=== PATIENT | female | born 1990 | race African-American/Black ===

== ENCOUNTER 2018-01-10 20:14 | Emergency (ER) | payer OTHER, SELFPAY | END 2018-01-10 20:57 | disposition home or self-care (01) | LOC: ERS 20:14 | DX: S70.01XA Contusion of right hip, initial encounter (principal); F17.210 Nicotine dependence, cigarettes, uncomplicated; V80.010A Animal-rider injured by fall from or being thrown from horse in noncollision accident, initial encounter | CPT/HCPCS: 99283 ==

== ENCOUNTER 2018-02-10 19:11 | Emergency (ER) | payer SELFPAY | END 2018-02-10 20:11 | disposition left against medical advice (07) | LOC: SCSER 19:11 | DX: Z53.21 Procedure and treatment not carried out due to patient leaving prior to being seen by health care provider (principal) ==

== ENCOUNTER → 2018-06-30 | Day surgery (SDC) | payer OTHER, SELFPAY | LOC: ER/OP 09:41 | PROVIDERS: ATTEND Emergency Medicine | DX: Z29.13 Encounter for prophylactic Rho(D) immune globulin (principal); Z79.899 Other long term (current) drug therapy; Z91.018 Allergy to other foods; Z91.040 Latex allergy status; Z88.5 Allergy status to narcotic agent | CPT/HCPCS: 90384; 96372 ==

== ENCOUNTER 2018-07-10 21:56 | Day surgery (SDC) | payer OTHER ==
[2018-07-10 22:33] VITALS: BP 110/59; TEMP 98.5; BMI 26.6
[2018-07-10 23:19] LABS: Bilirubin Negative (Negative); Blood, Urine Negative (Negative); Clarity CLEAR (Clear); Glucose, Urine (Dipstick) Negative (Negative); Leukocyte Negative (Negative); Nitrite Negative (Negative); Protein, Urine (Dipstick) Negative (Neg-Trace); Specific Gravity, Urine 1.027 (1.002-1.036)
[2018-07-10 23:21] LABS: Pathc Cast-AUWi Flag 0.43 (0-2.49)
[2018-07-10 23:24] LABS: FFN Internal QC Analyzer PASS (PASS); FFN Internal QC Cassette PASS (PASS); Fetal Fibronectin Negative (Negative)
[2018-07-10 23:31] LABS: Bacteria/HPF None Seen HPF (None Seen); Hyaline Casts/LPF NONE SEEN LPF (0-3 Hyaline); RBC/HPF 0-3 HPF (0-3); Squamous Epithelial 0-3 HPF (0-3); WBC/HPF 0-3 HPF (0-3)
[2018-07-10] MEDS: Lactated Ringer's 1,000 ML IV SCH (23:43)
[2018-07-11] MEDS: Lactated Ringer's 1,000 ML IV SCH (00:48)
[2018-07-11] MEDS ORDERED: diphenhydrAMINE 25 MG CAP PO SCH (01:30)
== END 2018-07-11 01:45 | disposition home or self-care (01) ==
LOC: L&D/OP 21:56
PROVIDERS: ATTEND Obstetrics & Gynecology
DX: O47.9 False labor, unspecified (principal); O23.599 Infection of other part of genital tract in pregnancy, unspecified trimester; B96.89 Other specified bacterial agents as the cause of diseases classified elsewhere
CPT/HCPCS: 81001; 82731; 87480; 87510; 87660; 96360; 96361; 99285; Q0163

== ENCOUNTER 2018-08-03 18:23 | Day surgery (SDC) | payer OTHER ==
[2018-08-03 19:11] VITALS: BMI 27.9
[2018-08-03 20:12] LABS: Bilirubin Negative (Negative); Blood, Urine Negative (Negative); Clarity CLEAR (Clear); Glucose, Urine (Dipstick) Negative (Negative); Leukocyte Negative (Negative); Nitrite Negative (Negative); Protein, Urine (Dipstick) Negative (Neg-Trace); Specific Gravity, Urine 1.029 (1.002-1.036); pH, Urine 6.5 (5.0-9.0)
[2018-08-03 20:15] LABS: Bacteria/HPF None Seen HPF (None Seen); Squamous Epithelial 0-3 HPF (0-3); WBC/HPF None Seen HPF (0-3)
[2018-08-03 20:18] LABS: Hyaline Casts/LPF 0-3 HYALINE CAST LPF (0-3 Hyaline); Manual Microscopic Reviewed? No Path Casts Seen; Pathc Cast-AUWi Flag 3.12 (0-2.49)
[2018-08-03 20:20] LABS: Urine Culture Reflex No No
--- NOTE | 2018-08-03 23:14 | PRG ---
DATE OF SERVICE: TIME OF SERVICE: 2100 hours. PRESENTING COMPLAINT: Contractions and pelvic pressure. HISTORY OF PRESENT ILLNESS: Ms. Linder is a 27-year-old 4, para 2, AB 1, at 37 weeks' gestation who sees Dr. Tony Sharpe. Her VIKRAM is 08/24/2018. She has a previous , previous who desires a TOLAC. She reports contractions q.5 minutes. She denies bleeding. She denies rupture of membranes. SALES PROMOTION DIRECTOR HISTORY: As noted. Previous C-sections. Rh negative, O negative. No group B strep available. MEDICAL HISTORY: None. SURGICAL HISTORY: x1. ALLERGIES: DENIES. MEDICATIONS: vitamins. SOCIAL HISTORY: Denies tobacco, alcohol, or drug use. FAMILY HISTORY: Noncontributory. REVIEW OF SYSTEMS: Noncontributory. PHYSICAL EXAMINATION: GENERAL: A black female, resting comfortably. VITAL SIGNS: Temperature 98.7, respirations 20, pulse 93, blood pressure 116/58. HEENT: Within normal limits. LUNGS: Clear to auscultation bilaterally. HEART: Regular rate and rhythm. ABDOMEN: Soft, nontender. No rebound or guarding. GENITALIA: Vulva without lesions. Vagina without discharge. CERVIX: On presentation, was 150, -3, cephalic, by RN. monitoring is carried out for approximately 30 to 45 minutes with a reactive heart rate tracing category 1, uterine irritability without firm contractions q.3-5 minutes. P.o. hydration was encouraged. The patient's contractions decreased. Recheck of her cervix by the same examiner revealed her cervix to be unchanged. ASSESSMENT: 37 weeks with Everardo Landers contractions. No evidence of active labor. Previous for TOLAC. PLAN: Discharge home. Keep scheduled followup with Dr. Sharpe. ER precautions. Job ID: [id number]
== END 2018-08-03 21:23 | disposition home or self-care (01) ==
LOC: L&D/OP 18:23
PROVIDERS: ATTEND Obstetrics & Gynecology
DX: O47.1 False labor at or after 37 completed weeks of gestation (principal); Z3A.37 37 weeks gestation of pregnancy; Z91.018 Allergy to other foods; Z91.040 Latex allergy status; Z98.890 Other specified postprocedural states
CPT/HCPCS: 51701; 81001; 99283

== ENCOUNTER 2018-08-16 02:44 | Inpatient (IN) | payer OTHER ==
[2018-08-16 03:14] VITALS: BMI 27.8
[2018-08-16] MEDS: Lactated Ringer's 1,000 ML IV SCH ×4 (03:30→10:17)
[2018-08-16] MEDS ORDERED: Lidocaine 1% (PF) 30 ML VIAL SC PRN (03:44)
[2018-08-16] MEDS ORDERED: NS / Oxytocin 40 units/1000ml 1,000 ML IV PRN (03:44)
[2018-08-16] MEDS ORDERED: Ibuprofen 800 MG TAB PO PRN (03:44)
[2018-08-16] MEDS ORDERED: Promethazine HCl 25 MG/ML VIAL IM PRN ×4 (03:44→18:55)
[2018-08-16] MEDS ORDERED: Ondansetron PF 4 MG/2 ML Vial IVP PRN ×4 (03:44→18:55)
--- NOTE | 2018-08-16 03:48 | PDOC.FPROB ---
FMR OB H&P: HPI - History of Present Illness Chief Complaint: contractions Indentification: 27 y/o @ 38.6 WGA History of Present Illness: Patient reports ctx that started at 8 pm and are every 4 minutes apart. She says they are very severe and she was unable to do anything during them. She denies any LOF, vaginal bleeding, vaginal d/c. Endorses good movement. Patient reports she was checked in Dr. Silva office on Friday and she was 2 cm. Primary Care Physician: Dr. 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 Reports trichomonas in a prior , no STI's during this - Surgical History Sx History: x1 Tonsillectomy - Social History Social History: Smoked 1ppd of cigarettes for the first half of her Smoked marijuana, but quit when she found out she was - Family History Family History: VSD in 2 brothers FMR OB H&P: Medications - Current Home Medications: Medication Instructions Recorded Confirmed Type Vit37/Iron/Folic Acid 1 tablet PO DAILY 12/26/16 08/16/18 History [Prenata Chewable Tablet] Allergies/Adverse Reactions: Allergies Allergy/AdvReac Type Severity Reaction Status Date / Time orange Allergy Severe Hives Verified 08/16/18 03:07 latex Allergy Intermediate Rash Verified 08/16/18 03:07 FMR OB H&P: ROS - Review of Systems General: denies: fever/chills, fatigue Eyes: denies: eye pain, double vision, scotomas ENT: denies: nasal congestion, rhinorrhea, sore throat Cardiovascular: denies: chest pain, edema Respiratory: reports: shortness of breath (occasionally when she lies flat). denies: cough Gastrointestinal: denies: nausea, vomiting Genitourinary (Female): reports: contractions. denies: dysuria, hematuria, vaginal bleeding Musculoskeletal: denies: pain, tenderness Neurologic: denies: numbness, weakness Integumentary: denies: itching, rash Endocrine: denies: cold intolerance, heat intolerance Hematologic/Lymphatic: denies: prolonged or excessive bleeding, enlarged lymph nodes Psychological: denies: depression, anxiety FMR OB H&P: Vital Signs - Maternal Vital signs: Vital Signs - First Documented Temp Pulse Resp BP 97.9 F 82 22 H 112/60 08/16/18 03:05 08/16/18 03:05 08/16/18 03:05 08/16/18 03:05 - Heart Tones Baseline: 135 Variability: minimal Acceleration: absent Deceleration: absent Category: category 2 [place] contractions every: 3-5 min FMR OB H&P: Physical Exam - Physical Exam General: NAD, awake, alert and oriented HEENT: normocephalic and atraumatic, EOMI, MMM, conjunctiva clear, grossly normal vision, grossly normal hearing Heart: RRR, normal S1/S2, no murmurs/rubs/gallops, pulses present, no edema General: CTAB, no respiratory distress, good air movement, no rales/rhonchi, no wheezing Abdomen: soft, gravid, non-tender, bowel sound present Neurological: cranial nerves II through XII intact, no focal deficit Skin: good tugor, capillary refill <2 seconds Lymphatic: no unusual bruising or bleeding, no purpura Psychiatric: intact recent and remote memory, good judgement and insight - Pelvic Exam SVE: 3.5/80/-3 Membranes: intact Presentation: vertex FMR OB H&P: A/P - Problem List (1) Term Current Visit: Yes Status: Acute Code(s): Z34.80 - ENCOUNTER FOR SUPRN OF NORMAL , UNSP TRIMESTER Assessment and Plan: Patient has made cervical change since Friday and is valerie regularly. She is a term who desires TOLAC. -Admit to L&D -Cervical check in 2 hours -Epidural desired -Continuous monitoring -Will notify Dr. Sharpe (2) Patient desires vaginal after section () Current Visit: Yes Status: Acute Code(s): O34.219 - MATERNAL CARE FOR UNSP TYPE SCAR FROM PREVIOUS DEL Assessment and Plan: Expectant management. Patient with one successful . -Monitor closely Disposition: Admit to L&D for expectant management Discussion: Date/Time: 08/16/18 1909 This H&P was discussed with Dr. Gerard who agrees with the above documentation and plan. Signature: Robyn Damon MD, PGY-2
[2018-08-16] MEDS ORDERED: Fentanyl 4 mcg/Bup 0.1% Cadd 100 ML ONE ×2 (03:50→11:13)
--- NOTE | 2018-08-16 03:53 | PDOC.EVN ---
Event Note - Event Note Event Note: OBGYN [facility] HISTORY AND PHYSICAL Patient of Dr landers Time: 344 Location: L&D Triage CC: CTX HPI: 27 yo multip with HX successful in past, now at 38 weeks 6 days, here for incresaing CTX. No LOF, no VB, no decrease in FM. No recent trauama. Was 2cm in office last FRI Review of Systems: complete ROS performed and as per HPI Past med: none Social: HX MJ use and tobacco this Surgical: CS X1, then OB HX: as above PHYSICAL: 112/60 afebrile NAD, but wth ctx discomfort abd s=d nt CX: 3-4/80/-3/BOWI monitors: mod variability at 140s, irregular CTXs on toco Assessment and plan: Multip at term )38 weeks 6 days), GBS unknown, in early labor. HX . Desires . Information provided. Plan: 1. admit to L&D 2. IVF hyrdration 3. look for GBS result, if none...we will defer to risk factor algorithm 4. Dr Landers aware of his admission 5. consented- risks and benefits of repeat reviewed.
[2018-08-16 03:58] LABS: Hemoglobin 11.4 g/dL (12.0-16.0); Mean Corpuscular HGB CONC 33.6 g/dL (32.0-36.0); Mean Corpuscular Hemoglobin 29.3 pg (27.0-31.0); Mean Platelet Volume 7.4 fL (7.4-10.4); Platelet Count 265 thou/uL (130-400); RBC Distribution Width 11.7 % (11.5-14.5); Red Blood Cell (RBC) Count 3.89 mill/uL (4.20-5.40)
[2018-08-16] MEDS ORDERED: Lidocaine 1.5%/Epinephrine 1:200,000 5 ML AMPUL IJ ONE (04:23)
[2018-08-16 04:36] LABS: HBSAg Index 0.29 S/CO (0-0.99); Hep B Surf Ag Non-Reactive S/CO (NonReactive); Syphilis Antibody Nonreactive (Nonreactive); Syphilis Antibody Index 0.04 S/CO (<1.00 Non-Reactive)
[2018-08-16] MEDS ORDERED: Acetaminophen 325 MG TAB PO PRN (05:25)
[2018-08-16] MEDS ORDERED: Lactated Ringer's 500 ML IV PRN (05:25)
[2018-08-16] MEDS ORDERED: Naloxone HCl 0.4 mg/ml Vial IVP PRN ×4 (05:25→17:30)
[2018-08-16] MEDS ORDERED: diphenhydrAMINE 50 MG/ML VIAL IVP PRN ×2 (05:25→17:30)
[2018-08-16] MEDS ORDERED: Eucerin (Mineral Oil/Petrolatum,White) 30 gm Jar TOP PRN ×2 (05:25→17:30)
[2018-08-16] MEDS ORDERED: Fentanyl 4 mcg/Bupivacaine 0.1% Cassette 100 ML EPIDURAL SCH (05:30)
[2018-08-16] MEDS ORDERED: Communication Order-Pharmacy FS SCH ×2 (05:30→17:30)
[2018-08-16] MEDS: ePHEDrine/0.9% NaCl/PF SYRINGE 50 mg/10 ml SLOW IVP PRN ×2 (05:34→10:17)
[2018-08-16] MEDS ORDERED: Lidocaine 1% (PF) 30 ML VIAL ONE (11:45)
[2018-08-16] MEDS ORDERED: NS / Oxytocin 40 units/1000ml 1,000 ML ONE (11:45)
[2018-08-16] MEDS: Dextrose 5%-Lactated Ringers 1,000 ML IV SCH ×2 (14:51→20:22)
[2018-08-16] MEDS ORDERED: Bicitra 30 ML UDCUP ONE (15:43)
[2018-08-16] MEDS ORDERED: CEFAZOLIN 2 GM in Premix Bag 1 BAG IVPB SCH (16:00)
[2018-08-16] MEDS ORDERED: Bicitra 30 ML UDCUP PO SCH (16:00)
[2018-08-16] MEDS ORDERED: Oxytocin 10 UNITS/ML VIAL ONE (16:11)
[2018-08-16] MEDS ORDERED: MORPHINE 5 MG/10 ML PF VIAL ONE (16:11)
[2018-08-16] MEDS ORDERED: Promethazine HCl 25 MG SUPP PR PRN (17:30)
[2018-08-16] MEDS ORDERED: Ondansetron PF 4 MG/2 ML Vial ONE (17:32)
[2018-08-16] MEDS ORDERED: Lactated Ringer's 1,000 ML IV SCH (18:55)
[2018-08-16] MEDS ORDERED: Lanolin Ointment 7 GM TUBE TOP PRN (18:55)
[2018-08-16] MEDS ORDERED: Bisacodyl 10 MG SUPP PR PRN (18:55)
[2018-08-16] MEDS ORDERED: Methylergonovine 0.2 MG/ML VIAL IM PRN (18:55)
[2018-08-16] MEDS ORDERED: NS / Oxytocin 40 units/1000ml 1,000 ML IV SCH (18:55)
[2018-08-16] MEDS: Ketorolac Tromethamine 30 MG/ML VIAL IVP PRN (20:05)
[2018-08-16] MEDS ORDERED: Acetaminophen 500 MG TAB PO PRN (20:22)
[2018-08-16] MEDS: Docusate Calcium (SURFAK) 240 MG CAP PO SCH (21:41)
[2018-08-17] MEDS: diphenhydrAMINE 25 MG CAP PO PRN (03:01)
[2018-08-17 07:24] LABS: Hemoglobin 9.4 g/dL (12.0-16.0); Mean Corpuscular HGB CONC 32.6 g/dL (32.0-36.0); Mean Corpuscular Hemoglobin 28.4 pg (27.0-31.0); Mean Platelet Volume 7.1 fL (7.4-10.4); Platelet Count 211 thou/uL (130-400); RBC Distribution Width 11.6 % (11.5-14.5); Red Blood Cell (RBC) Count 3.32 mill/uL (4.20-5.40); White Blood Cell (WBC) Count 11.7 thou/uL (4.8-10.8)
[2018-08-17] MEDS: Ketorolac Tromethamine 30 MG/ML VIAL IVP PRN (08:03)
[2018-08-17] MEDS: Docusate Calcium (SURFAK) 240 MG CAP PO SCH ×2 (08:03→21:35)
[2018-08-17] MEDS ORDERED: Adacel (T-DAP) 0.5 ML SYRINGE IM ONE (09:00)
[2018-08-17] MEDS ORDERED: Measles/Mumps/Rubella 10 MCG/0.5 ML VIAL SC ONE (09:00)
[2018-08-17] MEDS ORDERED: Varicella virus, LIVE 0.5 ML VIAL SC ONE (09:00)
[2018-08-17] MEDS: Naloxone HCl 0.4 mg/ml Vial IV PRN ×2 (14:14→14:34)
[2018-08-17] MEDS: Ibuprofen 800 MG TAB PO SCH ×2 (14:15→21:34)
[2018-08-17] MEDS: HYDROcodone/Acetaminophen 5/325 mg Tablet PO PRN ×2 (14:37→18:33)
[2018-08-17] MEDS: Simethicone Chewable 80 MG TAB PO PRN (18:33)
--- NOTE | 2018-08-17 21:30 | PDOC.PP ---
Post Progress Note Post Day #: 1 PO intake tolerated: yes Flatus: yes Ambulation: yes Vital Signs (12 hours) Temp Pulse Resp BP Pulse Ox 08/17/18 20:14 97.8 F 83 18 103/51 L 98 08/17/18 17:06 98.4 F 84 18 112/57 L 98 08/17/18 12:00 98.7 F 88 18 103/62 Weight Weight 147 lb - Physical Examination General: NAD Cardiovascular: no m/r/g, RRR Respiratory: clear to auscultation bilaterally, non-labored breathing Abdominal: + bowel sounds Extremities: negative homans (B) Skin: CS incision dry & intact, no rash Neurological: no gross focal deficits Psychiatric: A&Ox3, normal affect (Doing very well. No fever in 24 hours.) Result Diagrams: 08/17/18 07:03 Additional Labs: Post Labs Blood Type O NEGATIVE 08/16/18 03:51 Hep Bs Antigen Non-Reactive S/CO (NonReactive) 08/16/18 03:51
[2018-08-18] MEDS: HYDROcodone/Acetaminophen 5/325 mg Tablet PO PRN ×4 (00:30→23:54)
[2018-08-18] MEDS: diphenhydrAMINE 25 MG CAP PO PRN (00:36)
[2018-08-18] MEDS: Ibuprofen 800 MG TAB PO SCH ×3 (05:06→22:22)
[2018-08-18] MEDS: Simethicone Chewable 80 MG TAB PO PRN (05:08)
[2018-08-18] MEDS: Docusate Calcium (SURFAK) 240 MG CAP PO SCH ×2 (08:55→22:22)
--- NOTE | 2018-08-18 17:16 | PDOC.PP ---
Post Progress Note Post Day #: 2 PO intake tolerated: yes Flatus: yes Ambulation: yes Vital Signs (12 hours) Temp Pulse Resp BP Pulse Ox 08/18/18 08:19 98.4 F 73 16 105/56 L 98 Weight Weight 147 lb - Physical Examination General: NAD Cardiovascular: no m/r/g, RRR Respiratory: clear to auscultation bilaterally, non-labored breathing Abdominal: + bowel sounds, lochia, no distention, appropriately TTP Extremities: negative homans (B) Skin: CS incision dry & intact, no rash (DC TO HOME PLANNED TOMORROW) Result Diagrams: 08/17/18 07:03 Additional Labs: Post Labs Blood Type O NEGATIVE 08/16/18 03:51 Hep Bs Antigen Non-Reactive S/CO (NonReactive) 08/16/18 03:51
[2018-08-19] MEDS: Ibuprofen 800 MG TAB PO SCH ×2 (05:18→12:52)
[2018-08-19 08:05] VITALS: BP 118/70; TEMP 98.7
[2018-08-19] MEDS: Docusate Calcium (SURFAK) 240 MG CAP PO SCH (09:18)
[2018-08-19] MEDS: HYDROcodone/Acetaminophen 5/325 mg Tablet PO PRN ×2 (09:18→12:52)
== END 2018-08-19 13:35 | disposition home or self-care (01) | DRG 807 ==
LOC: L&D/OP 02:44 → L&D 03:52 → 3SW 19:54
PROVIDERS: ADMIT Obstetrics & Gynecology; ATTEND Obstetrics & Gynecology
PROC: 10E0XZZ Delivery of Products of Conception, External Approach (ICD-10-PCS; principal; 2018-08-16)
DX: O34.219 Maternal care for unspecified type scar from previous cesarean delivery (principal); Z37.0 Single live birth; Z3A.38 38 weeks gestation of pregnancy; Z87.891 Personal history of nicotine dependence; O76 Abnormality in fetal heart rate and rhythm complicating labor and delivery; O69.1XX0 Labor and delivery complicated by cord around neck, with compression, not applicable or unspecified
CPT/HCPCS: 36415; 51702; 85027; 85461; 86780; 86850; 86870; 86900; 86901; 87340; 90384; 96372; 99285; J1885; J2001; J2270; J2310; J2405; J2590; J3490; Q0163

== ENCOUNTER 2019-04-21 09:30 | Emergency (ER) | payer OTHER, SELFPAY | END 2019-04-21 16:41 | disposition home or self-care (01) | LOC: ERS 09:30 | DX: M25.531 Pain in right wrist (principal) | CPT/HCPCS: 99283 ==

== ENCOUNTER 2023-09-27 13:58 | Emergency (ER) | payer SELFPAY ==
[2023-09-27] MEDS ORDERED: Acetaminophen 500 MG TAB ONE (15:08)
[2023-09-27 15:29] LABS: #Basophils 0.04 10x3/uL (0.0-0.2); %Basophils 0.4 % (0.0-1.0); %Eosinophils 0.3 % (0.0-10.0); %Lymphocytes 27.9 % (21.0-51.0); %Monocytes 4.6 % (0.0-10.0); %Neutrophils 66.3 % (42.0-75.0); Hematocrit 35.3 % (36.0-47.0); Hemoglobin 11.7 g/dL (12.0-16.0); Mean Corpuscular HGB CONC 33.1 g/dL (32.0-36.0); Mean Corpuscular Hemoglobin 29.3 pg (27.0-31.0); Mean Corpuscular Volume 88.5 fL (78.0-98.0); Mean Platelet Volume 8.9 fL (7.4-10.4); Platelet Count 281 10x3/uL (130-400); RBC Distribution Width 14.6 % (11.5-14.5); Red Blood Cell (RBC) Count 3.99 mill/uL (4.20-5.40)
[2023-09-27 15:49] LABS: ALT (SGPT) 22 U/L (8-55); AST (SGOT) 24 U/L (5-34); Albumin 3.9 g/dL (3.5-5.0); Alkaline Phosphatase 46 U/L (40-110); Anion Gap 12 mmol/L (10-20); BUN (Urea Nitrogen) 12 mg/dL (7.0-18.7); Bilirubin, Total 0.5 mg/dL (0.2-1.2); Calc. Creatinine Clearance 0 mL/min (70-130); Carbon Dioxide 22 mmol/L (22-29); Chloride 113 mmol/L (98-107); Estimated GFR 95; Globulin 2.8 g/dL (2.4-3.5); Glucose 77 mg/dL (70-105); Protein, Total 6.7 g/dL (6.0-8.3); Sodium 143 mmol/L (136-145)
== END 2023-09-27 17:12 | disposition home or self-care (01) ==
LOC: ERS 13:58
DX: O9A.211 Injury, poisoning and certain other consequences of external causes complicating pregnancy, first trimester (principal); R10.31 Right lower quadrant pain; O99.331 Smoking (tobacco) complicating pregnancy, first trimester; F17.210 Nicotine dependence, cigarettes, uncomplicated; Y04.2XXA Assault by strike against or bumped into by another person, initial encounter; Z3A.08 8 weeks gestation of pregnancy
CPT/HCPCS: 36415; 76815; 80053; 84702; 85025; 86900; 86901